=== PATIENT | male | born 1960 | race Caucasian/White ===

== ENCOUNTER 2023-06-20 08:35 | Inpatient (IN) | payer BC ==
[~2023-06-20] VITALS: Ht 185.4 cm; Wt 95.6 kg
[2023-06-20] VITALS (10 sets, daily range): BP systolic 121–153; BP diastolic 77–92; PULSE 63–104; RESP 11–20; TEMP 97.6; O2SAT 94–97
[2023-06-20 09:08] LABS: BASOPHILS % (AUTO) 0.3 % (0-1); EOSINOPHILS # (AUTO) 0.1 X10'3 (0-0.9); EOSINOPHILS % (AUTO) 1.3 % (0-6); HEMOGLOBIN 15.6 g/dl (14.0-17.9); LYMPHOCYTES # (AUTO) 0.9 X10'3 (1.1-4.8); LYMPHOCYTES % (AUTO) 10.7 % (21-51); MEAN CORPUSCULAR HEMOGLOBIN 30.1 PG (27.0-31.0); MEAN CORPUSCULAR VOLUME 88.6 FL (78-98); MEAN PLATELET VOLUME 8.8 FL (7.4-10.4); MONOCYTES # (AUTO) 0.5 X10'3 (0-0.9); MONOCYTES % (AUTO) 6.4 % (2-12); NEUTROPHILS # (AUTO) 6.9 X10'3 (1.8-7.7); NEUTROPHILS % (AUTO) 81.3 % (42-75); PLATELET COUNT 194 X10'3 (140-440); WHITE BLOOD COUNT 8.4 X10'3 (4.5-11.0)
[2023-06-20 09:23] LABS: ALANINE AMINOTRANSFERASE 30 U/L (12-78); ALBUMIN/GLOBULIN RATIO 1.1 (1.1-1.5); ALKALINE PHOSPHATASE 81 IU/L (46-116); ANION GAP 7 (8-16); ASPARTATE AMINO TRANSFERASE 20 U/L (10-37); BILIRUBIN,TOTAL 0.3 MG/DL (0.1-1.0); BLOOD UREA NITROGEN 24 MG/DL (7-18); BUN/CREATININE RATIO 20.7 (10.0-20.0); CALCIUM 9.4 MG/DL (8.5-10.1); CHLORIDE 104 MMOL/L (99-107); CREATININE 1.16 MG/DL (0.60-1.10); GLUCOSE 143 MG/DL (70-104); POTASSIUM 5.2 MMOL/L (3.5-5.1); SODIUM 137 MMOL/L (135-145); TOTAL CARBON DIOXIDE 26.5 MMOL/L (24-32); TOTAL PROTEIN 7.7 G/DL (6.4-8.2); eCRCL 75 ML/MIN; eGFR 64 ML/MIN
[2023-06-20] MEDS ORDERED: aspirin 81mg tab.chew PO ONE (09:50)
[2023-06-20] MEDS ORDERED: heparin 10,000 units/1 ML INJ IV ONE ×2 (09:50→10:00)
[2023-06-20] MEDS ORDERED: nitroGLYCERIN 0.4mg SUBLingual tab SL PRN (09:50)
[2023-06-20 10:01] LABS: PRO BRAIN NATRIURETIC PEPTIDE 252 PG/ML (0-125)
[2023-06-20] MEDS: nitroGLYCERIN-Tridil 50MG/D5W 250 ML IV PRN ×2 (10:32→22:16)
[2023-06-20 11:05] LABS: APTT 29 SECONDS (22-32); PROTHROMBIN TIME 10.8 SECONDS (9.0-12.0)
[2023-06-20] MEDS: heparin 25,000 UNIT/250ml bag 250 ML IV PRN (11:17)
[2023-06-20] MEDS ORDERED: magnesium hydroxide 30ml (MOM) UD suspension PO PRN ×2 (12:15→15:45)
[2023-06-20] MEDS ORDERED: ondansetron/PF 4mg/2ml inj IV PRN (12:15)
[2023-06-20] MEDS ORDERED: magnesium Cl slow-release 64mg tablet PO PRN (12:15)
[2023-06-20] MEDS ORDERED: magnesium 4gm in 100ml NS 100 ML IV PRN (12:15)
[2023-06-20] MEDS ORDERED: acetaminophen 325mg tablet PO PRN ×3 (12:15→15:45)
[2023-06-20] MEDS ORDERED: magnesium 2GM in 50ml NS 50 ML IV PRN (12:15)
[2023-06-20] MEDS ORDERED: mag hydrox/Alum hydrox/simeth 30ml oral suspension PO PRN (12:15)
[2023-06-20] MEDS ORDERED: potassium Cl 20 mEq SR tablet PO PRN ×2 (12:15)
[2023-06-20] MEDS ORDERED: potassium Cl 40MEQ/1/2NS 520ml 520 ML IV PRN (12:15)
[2023-06-20] MEDS ORDERED: metoprolol tartrate 1mg/ml inj IV ONE ×2 (12:25→13:33)
[2023-06-20] MEDS ORDERED: metoprolol succinate 25mg (24-HOUR) SR. Tablet PO SCH (12:40)
[2023-06-20] MEDS ORDERED: LORazepam 2 mg/ml vial IV PRN (12:45)
[2023-06-20] MEDS ORDERED: haloperidol lactate 5mg/ml inj IM PRN (12:45)
[2023-06-20] MEDS ORDERED: haloperidol 5mg tablet PO PRN (12:45)
[2023-06-20] MEDS ORDERED: LIDOcaine 1% 30ml preserv. free vial ONE (12:51)
[2023-06-20] MEDS ORDERED: iohexol 350 MG/ML 50ML vial IV ONE ×2 (12:52→14:31)
[2023-06-20] MEDS ORDERED: atropine 0.1mg/ml 10ml syringe ONE (12:52)
[2023-06-20] MEDS ORDERED: iohexol 350MG/ML 100ml bottle IV ONE ×3 (12:52→14:08)
[2023-06-20] MEDS ORDERED: heparin 1,000unit/ml 10ml vial 0 ML ONE (12:52)
[2023-06-20] MEDS ORDERED: midazolam 1 mg/ML 2ml injection ONE ×3 (12:52→14:10)
[2023-06-20] MEDS ORDERED: epiNEPHrine 0.1mg/ml 10ml syringe ONE (12:52)
[2023-06-20] MEDS ORDERED: fentaNYL/PF 50MCG/1 ML 2ML syringe ONE ×2 (12:52→14:13)
[2023-06-20 13:14] LABS: HEMOGLOBIN A1C 5.2 % (4.5-6.2)
[2023-06-20] MEDS ORDERED: diphenhydrAMINE 50 mg/ml inj ONE (13:19)
[2023-06-20 13:24] LABS: CHOL/HDL RATIO 2.8 (0.00-4.99); CHOLESTEROL 224 MG/DL (0-200); HDL CHOLESTEROL 81 MG/DL (35-60); LDL CHOLESTEROL 121 MG/DL (50-100); TRIGLYCERIDES 58 MG/DL (20-135)
[2023-06-20] MEDS ORDERED: heparin 1,000 UNITS/NS 500ml 500 ML ONE (13:49)
[2023-06-20] MEDS ORDERED: tirofiban 12.5mg in NS 250mL 250 ML IV ONE (13:50)
[2023-06-20] MEDS ORDERED: ticagrelor 90mg tablet ONE (14:36)
[2023-06-20] MEDS ORDERED: HYDROcodone/acetaminophen 10/325mg tab PO PRN ×2 (15:45)
[2023-06-20] MEDS ORDERED: heparin 10,000 units/1 ML INJ IV PRN (15:45)
[2023-06-20] MEDS ORDERED: cyclobenzaprine 10mg tablet PO PRN (15:45)
[2023-06-20] MEDS ORDERED: morphine 10mg/ml inj. IV PRN (15:45)
[2023-06-20] MEDS ORDERED: OXAZEpam 15mg capsule PO PRN (15:45)
[2023-06-20] MEDS ORDERED: proCHLORperazine 10 MG/2 ml inj IV PRN (15:45)
[2023-06-20] MEDS: normal saline 1000ml 1,000 ML IV SCH (15:52)
[2023-06-20] MEDS: sodium chloride 0.45% 1,000 ML IV SCH (15:52)
[2023-06-20] MEDS: tirofiban 12.5mg in NS 250mL IV SCH (15:54)
[2023-06-20] MEDS: losartan 50mg tablet PO SCH (16:48)
[2023-06-20] MEDS: atorvastatin 20mg tablet PO SCH (17:13)
[2023-06-20] MEDS: nicotine 14mg patch - 24hr TD SCH (17:13)
[2023-06-20] MEDS: thiamine 100mg/ml 2ml inj. IV SCH ×2 (17:13→20:14)
[2023-06-20] MEDS: HYDROmorphone 1 mg/ml syringe IV PRN (18:20)
[2023-06-20] MEDS: LORazepam 1 MG tablet PO PRN ×2 (18:32→21:09)
[2023-06-20] MEDS ORDERED: docusate sod 100mg capsule PO SCH (20:00)
[2023-06-20] MEDS: K and/or MAG REPLACEMENT MC SCH (20:00)
[2023-06-20] MEDS: ticagrelor 90mg tablet PO SCH (20:15)
[2023-06-20] MEDS: docusate sod 100mg capsule PO SCH (20:15)
[2023-06-20] MEDS ORDERED: metoprolol tartrate 12.5mg (1/2 tablet) PO ONE (22:05)
[2023-06-21] VITALS (18 sets, daily range): BP systolic 113–156; BP diastolic 71–105; PULSE 81–131; RESP 11–30; O2SAT 94–97
[2023-06-21] MEDS: tirofiban 12.5mg in NS 250mL IV SCH (00:30)
[2023-06-21] MEDS: HYDROmorphone 1 mg/ml syringe IV PRN (00:30)
[2023-06-21] MEDS: heparin 25,000 UNIT/250ml bag 250 ML IV PRN (00:31)
[2023-06-21 00:32] LABS: BASOPHILS % (AUTO) 0.2 % (0-1); EOSINOPHILS # (AUTO) 0.1 X10'3 (0-0.9); EOSINOPHILS % (AUTO) 0.6 % (0-6); HEMATOCRIT 35.6 % (42.0-52.0); HEMOGLOBIN 12.4 g/dl (14.0-17.9); MEAN CORPUSCULAR HEMOGLOBIN 30.6 PG (27.0-31.0); MEAN CORPUSCULAR HGB CONC 34.7 g/dL (33.0-36.5); MEAN CORPUSCULAR VOLUME 88.1 FL (78-98); MEAN PLATELET VOLUME 8.7 FL (7.4-10.4); MONOCYTES # (AUTO) 0.7 X10'3 (0-0.9); MONOCYTES % (AUTO) 8.1 % (2-12); NEUTROPHILS # (AUTO) 6.5 X10'3 (1.8-7.7); NEUTROPHILS % (AUTO) 79.1 % (42-75); PLATELET COUNT 147 X10'3 (140-440); RED BLOOD COUNT 4.03 X10'6 (4.70-6.10); WHITE BLOOD COUNT 8.2 X10'3 (4.5-11.0)
[2023-06-21 01:04] LABS: ALANINE AMINOTRANSFERASE 47 U/L (12-78); ALBUMIN 2.8 G/DL (3.4-5.0); ALKALINE PHOSPHATASE 52 IU/L (46-116); AMYLASE 27 U/L (25-115); ANION GAP 8 (8-16); ASPARTATE AMINO TRANSFERASE 314 U/L (10-37); BILIRUBIN,TOTAL 0.7 MG/DL (0.1-1.0); BLOOD UREA NITROGEN 13 MG/DL (7-18); BUN/CREATININE RATIO 14.9 (10.0-20.0); CALCIUM 8.2 MG/DL (8.5-10.1); CHLORIDE 104 MMOL/L (99-107); CHOLESTEROL 187 MG/DL (0-200); CREATININE 0.87 MG/DL (0.60-1.10); GLUCOSE 105 MG/DL (70-104); HDL CHOLESTEROL 63 MG/DL (35-60); LDL CHOLESTEROL 96 MG/DL (50-100); LIPASE 28 U/L (16-77); MAGNESIUM 1.9 MG/DL (1.5-2.4); PHOSPHORUS 2.1 MG/DL (2.3-4.5); SODIUM 135 MMOL/L (135-145); TOTAL CARBON DIOXIDE 22.9 MMOL/L (24-32); TOTAL PROTEIN 5.6 G/DL (6.4-8.2); TRIGLYCERIDES 131 MG/DL (20-135); eCRCL 99 ML/MIN; eGFR 89 ML/MIN
[2023-06-21 01:35] LABS: PROTHROMBIN TIME 11.1 SECONDS (9.0-12.0)
[2023-06-21] MEDS: morphine 4 MG/ML inj SYRINge IV PRN ×2 (05:04→13:41)
[2023-06-21] MEDS: LORazepam 1 MG tablet PO PRN ×2 (05:04→13:41)
[2023-06-21] MEDS: K and/or MAG REPLACEMENT MC SCH (07:19)
[2023-06-21] MEDS ORDERED: multivitamins, therapeutics tablet PO SCH ×2 (08:00)
[2023-06-21] MEDS ORDERED: famotidine 20mg tablet PO SCH (08:00)
[2023-06-21] MEDS ORDERED: lisinopril 2.5mg tablet PO SCH (08:00)
[2023-06-21] MEDS ORDERED: metoprolol tartrate 12.5mg (1/2 tablet) PO SCH (08:00)
[2023-06-21] MEDS ORDERED: folic acid 1mg/0.2ml inj IV SCH (08:00)
[2023-06-21] MEDS ORDERED: aspirin 81mg tab.chew PO SCH (08:30)
[2023-06-21] MEDS: normal saline 1000ml 1,000 ML IV SCH (08:45)
[2023-06-21] MEDS ORDERED: LIDOcaine 1% 30ml preserv. free vial ONE (09:24)
[2023-06-21] MEDS: thiamine 100mg/ml 2ml inj. IV SCH ×2 (09:28→12:14)
[2023-06-21] MEDS: docusate sod 100mg capsule PO SCH (09:29)
[2023-06-21] MEDS: atorvastatin 20mg tablet PO SCH (09:29)
[2023-06-21] MEDS: losartan 50mg tablet PO SCH (09:30)
[2023-06-21] MEDS: ticagrelor 90mg tablet PO SCH (09:30)
[2023-06-21] MEDS: nicotine 14mg patch - 24hr TD SCH (09:31)
[2023-06-21] MEDS: sodium chloride 0.45% 1,000 ML IV SCH (11:40)
[2023-06-21] MEDS: nitroGLYCERIN-Tridil 50MG/D5W 250 ML IV PRN (12:13)
[2023-06-21] MEDS ORDERED: NO HOME MEDS (12:26)
[2023-06-21] MEDS ORDERED: LORazepam 2 mg/ml vial IV PRN (16:35)
[2023-06-24] MEDS ORDERED: thiamine 100mg tablet PO SCH (08:00)
[2023-06-25] MEDS ORDERED: folic acid 1mg tablet PO SCH (08:00)
== END 2023-06-21 19:27 | DRG 322 ==
LOC: ER 08:35 → ED HOLD 12:15 → CICU 2S 15:30
PROVIDERS: ADMIT Family Medicine; ATTEND Family Medicine
PROC: 02703EZ Dilation of Coronary Artery, One Artery with Two Intraluminal Devices, Percutaneous Approach (ICD-10-PCS; principal; 2023-06-20)
PROC: 4A023N7 Measurement of Cardiac Sampling and Pressure, Left Heart, Percutaneous Approach (ICD-10-PCS; 2023-06-20)
PROC: B2150ZZ Fluoroscopy of Left Heart using High Osmolar Contrast (ICD-10-PCS; 2023-06-20)
PROC: B2130ZZ Fluoroscopy of Multiple Coronary Artery Bypass Grafts using High Osmolar Contrast (ICD-10-PCS; 2023-06-20)
PROC: B41F1ZZ Fluoroscopy of Right Lower Extremity Arteries using Low Osmolar Contrast (ICD-10-PCS; 2023-06-20)
PROC: 5A12012 Performance of Cardiac Output, Single, Manual (ICD-10-PCS; 2023-06-21)
DX: I21.09 ST elevation (STEMI) myocardial infarction involving other coronary artery of anterior wall (principal); N17.9 Acute kidney failure, unspecified; I25.110 Atherosclerotic heart disease of native coronary artery with unstable angina pectoris; E78.00 Pure hypercholesterolemia, unspecified; I10 Essential (primary) hypertension; F12.10 Cannabis abuse, uncomplicated; F10.10 Alcohol abuse, uncomplicated; I48.0 Paroxysmal atrial fibrillation; Z87.891 Personal history of nicotine dependence; Z91.199 Patient's noncompliance with other medical treatment and regimen due to unspecified reason; Z95.5 Presence of coronary angioplasty implant and graft
CPT/HCPCS: 92950; 93306; 93458; 99285; C9607; C9608; 36415; 71045; 80053; 80061; 82150; 83036; 83690; 83735; 83880; 84100; 84443; 84484; 85025; 85347; 85610; 85730; 87081; 93005; 94760; 99152; 99153; A4349; A6213; A6258; A6449; C1725; C1751; C1760; C1769; C1874; G0378; J0171; J0461; J1170; J1200; J1630; J1644; J2060; J2250; J2270; J3010; J3246; J3411; J3490; J7030; J7040; Q9967